=== PATIENT | female | born 1975 | race Caucasian/White ===

== ENCOUNTER 2016-04-20 20:35 | Emergency (ER) | payer OTHER ==
[~2016-04-20] VITALS: Ht 176.5 cm; Wt 68.6 kg
[~2016-04-20 20:35] MED LIST: ACET-1256 PO; ASPI81TA28 PO; CITA20TA9 PO; CMD5 PO; ENOX80IN SQ; ISOT40CA PO; LEVO112T2 PO; ONDA8TAB13 PO; OXYC-57 PO; SPIR50TA2 PO
[2016-04-20 20:42] VITALS: TEMP 36.9; Ht 176.5 cm; Wt 68.6 kg
[2016-04-20 21:18] LABS: BASO % 0.2 %; BASO ABS # 0.01 K/uL (0-0.2); COMPLETE YES; EOS % 0.7 %; HEMATOCRIT 39.8 % (37-47); IG% 0.2 %; LYMPH % 38.2 %; LYMPH ABS # 2.31 K/uL (1.2-3.4); MEAN CORPUSCULAR HEMOGLOBIN 26.6 pg (25-34); MEAN CORPUSCULAR HGB CONC 33.7 g/dl (32-36); MEAN PLATELET VOLUME 10.2 fL (7.4-10.4); MONO % 7.6 %; NEUT % 53.1 %; PLATELET COUNT 237 K/uL (130-400); RED BLOOD COUNT 5.04 M/uL (4.2-5.4); WHITE BLOOD COUNT 6.05 K/uL (4.8-10.8)
[2016-04-20 21:28] LABS: INR 1.7 (0.9-1.1); PARTIAL THROMBOPLASTIN RATIO 1.2; PROTHROMBIN TIME (PATIENT) 18.3 SECONDS (9.0-12.0)
[2016-04-20] MEDS ORDERED: WARF10TA4 PO (21:29)
[2016-04-20] MEDS ORDERED: WARF7.5T4 PO (21:29)
[2016-04-20 21:38] LABS: ALT/SGPT 29 U/L (12-78); BLOOD UREA NITROGEN 17 mg/dl (7-18); BUN/CREATININE RATIO 23.7 (10-20); CALCIUM 8.7 mg/dl (8.5-10.1); CARBON DIOXIDE 27 mmol/L (21-32); CHLORIDE 106 mmol/L (98-107); GLUCOSE 72 mg/dl (70-99); MAGNESIUM 1.9 mg/dl (1.8-2.4); POTASSIUM 3.4 mmol/L (3.5-5.1); SODIUM 142 mmol/L (136-145)
[2016-04-20 21:41] LABS: ALKALINE PHOSPHATASE 48 U/L (45-117); AST/SGOT 21 U/L (15-37)
[2016-04-20] MEDS ORDERED: ENOXAPARIN 80 MG/0.8 ML SYR SQ STA (21:41)
--- NOTE | 2016-04-20 21:44 | EMERGENCY ROOM VISIT NOTE ---
History Report prepared by Dilia: Zeny Rashid Under the Supervision of: Dr. Jeannie Min M.D. First contact with patient: 20:52 Chief Complaint: SHORTNESS OF BREATH Stated Complaint: CHEST PAIN,DX W/PE History of Present Illness The patient is a 40 year old female who presents to the Emergency Room with complaints of worsening right sided chest pain over the past few days. The patient notes that she had her left saphenous vein ablated on March 28 due to varicose veins. The surgery produces a blood clot and she had an ultrasound the following day to check the placement of the clot. During the ultrasound, a piece of the clot broke off. She was started on Lovanox that evening. The following day, she started to become short of breath and came to the emergency room. She was diagnosed with a pulmonary embolism in her right lower lobe. The patient was hospitalized and was put on Coumadin. Since then, she has had increased shortness of breath with exertion, especially while she was very busy at work yesterday. Currently, she continues to have right sided chest pain and also has noticed some left leg swelling. She has been having left leg neuropathy since the surgery. Her most recent INR was 1.5, 4 days ago. She was initially on 7.5 mg Coumadin a day but is now on 7.5 mg 4 days a week and 10 mg 3 days a week. Denies fever or other complaints. Source of History: patient Onset: a few days [employer] Position: chest (right) Timing: worsening Associated Symptoms: + SOB, No fevers Note: Other complaints: left leg swelling, left leg neuropathy pain Review of Systems See HPI for pertinent positives & negatives. A total of 10 systems reviewed and were otherwise negative. Past Medical & Surgical Medical Problems: (1) Hyperthyroidism (2) vein ablation Surgical Problems: (1) History of tonsillectomy (2) Hx of LASIK Family History Patient reports no known family medical history. Social History Smoking Status: Never Smoker Alcohol Use: none Marital Status: single Occupation Status: employed Current/Historical Medications Scheduled Citalopram Hydrobromide (Celexa), 20 MG PO DAILY Levothyroxine Sodium (Synthroid), 112 MCG PO DAILY Spironolactone (Aldactone), 50 MG PO QAM Warfarin Sod (Jantoven), 7.5 MG PO 4XWK Warfarin Sod (Jantoven), 10 MG PO 3XWK Scheduled PRN Acetaminophen (Tylenol), 500-1,000 MG PO Q8 PRN for Pain Ondansetron Odt (Zofran Odt), 8 MG PO Q8H PRN for Nausea or Vomiting Oxycodone/Acetaminophen 5MG/325MG (Percocet 5MG/325MG), 1 TABLET PO Q6H PRN for Pain Allergies Coded Allergies: Minocycline (Verified Allergy, Intermediate, Rash, 04/20/16) Penicillins (Verified Allergy, Intermediate, Hives, 04/20/16) Physical Exam Vital Signs Date Time Temp Pulse Resp B/P Pulse Ox O2 Delivery O2 Flow Rate FiO2 04/20/16 22:15 58 18 132/65 97 Room Air 04/20/16 21:05 78 04/20/16 21:00 98 Room Air 04/20/16 20:42 36.9 74 18 117/74 99 Room Air Physical Exam Vital signs reviewed. General: Well-appearing 40 year old female, in no significant distress. HEENT: No scleral icterus, PERRLA, neck supple. Atraumatic. Cardiovascular: Regular rate and rhythm, no extra sounds. Pulmonary: Clear to auscultation bilaterally, normal work of breathing. Abdomen: Soft, nontender, nondistended, positive bowel sounds. Musculoskeletal: Atraumatic, no peripheral edema. Neurologic: Patient awake alert and oriented x 3 Skin: Warm, dry, no rash Medical Decision & Procedures ER Provider Diagnostic Interpretation: X-ray results as stated below per interpretation by me. Chest x-ray 2 views: Normal mediastinal silhouette, lung hernandez clear bilaterally, no failure, no infiltrate. Laboratory Results 04/20/16 21:00 Red Blood Count 5.04, Mean Corpuscular Volume 79.0, Mean Corpuscular Hemoglobin 26.6, Mean Corpuscular Hemoglobin Concent 33.7, Mean Platelet Volume 10.2, Neutrophils (%) (Auto) 53.1, Lymphocytes (%) (Auto) 38.2, Monocytes (%) (Auto) 7.6, Eosinophils (%) (Auto) 0.7, Basophils (%) (Auto) 0.2, Neutrophils # (Auto) 3.22, Lymphocytes # (Auto) 2.31, Monocytes # (Auto) 0.46, Eosinophils # (Auto) 0.04, Basophils # (Auto) 0.01 04/20/16 21:00 Test 04/20/16 21:00 White Blood Count 6.05 K/uL (4.8-10.8) Red Blood Count 5.04 M/uL (4.2-5.4) Hemoglobin 13.4 g/dL (12.0-16.0) Hematocrit 39.8 % (37-47) Mean Corpuscular Volume 79.0 fL (80-100) Mean Corpuscular Hemoglobin 26.6 pg (25-34) Mean Corpuscular Hemoglobin Concent 33.7 g/dl (32-36) Platelet Count 237 K/uL (130-400) Mean Platelet Volume 10.2 fL (7.4-10.4) Neutrophils (%) (Auto) 53.1 % Lymphocytes (%) (Auto) 38.2 % Monocytes (%) (Auto) 7.6 % Eosinophils (%) (Auto) 0.7 % Basophils (%) (Auto) 0.2 % Neutrophils # (Auto) 3.22 K/uL (1.4-6.5) Lymphocytes # (Auto) 2.31 K/uL (1.2-3.4) Monocytes # (Auto) 0.46 K/uL (0.11-0.59) Eosinophils # (Auto) 0.04 K/uL (0-0.5) Basophils # (Auto) 0.01 K/uL (0-0.2) RDW Standard Deviation 39.1 fL (36.4-46.3) RDW Coefficient of Variation 13.9 % (11.5-14.5) Immature Granulocyte % (Auto) 0.2 % Immature Granulocyte # (Auto) 0.01 K/uL (0.00-0.02) Prothrombin Time 18.3 SECONDS (9.0-12.0) Prothromb Time International Ratio 1.7 (0.9-1.1) Activated Partial Thromboplast Time 31.3 SECONDS (21.0-31.0) Partial Thromboplastin Ratio 1.2 Anion Gap 9.0 mmol/L (3-11) Est Creatinine Clear Calc Drug Dose 112.4 ml/min Estimated GFR () 124.7 Estimated GFR (Non- 107.6 BUN/Creatinine Ratio 23.7 (10-20) Calcium Level 8.7 mg/dl (8.5-10.1) Magnesium Level 1.9 mg/dl (1.8-2.4) Total Bilirubin 0.3 mg/dl (0.2-1) Direct Bilirubin < 0.1 mg/dl (0-0.2) Aspartate Amino Transf (AST/SGOT) 21 U/L (15-37) Alanine Aminotransferase (ALT/SGPT) 29 U/L (12-78) Alkaline Phosphatase 48 U/L (45-117) Total Protein 7.2 gm/dl (6.4-8.2) Albumin 3.8 gm/dl (3.4-5.0) Laboratory results per my review. Medications Administered Medications (Trade) Dose Ordered Sig/Indira Route Start Time Stop Time Status Last Admin Dose Admin Enoxaparin Sodium (Lovenox Inj) 70 mg NOW STAT SQ 04/20/16 21:41 04/20/16 21:42 DC 04/20/16 22:19 70 MG ED Course 2100: Past medical records reviewed. The patient was evaluated in room C6. A complete history and physical examination was performed. 2140: Ordered Lovenox Inj 70 mg SQ 2142: Upon reevaluation, the patient was resting comfortably. I discussed findings with the patient. She verbalized agreement of the treatment plan. The patient was discharged home. Medical Decision Differential: Acute coronary syndrome, pulmonary embolus, aortic dissection, musculoskeletal pain, pneumonia, pleural effusion, pneumothorax This patient was evaluated and appeared to be in no significant distress. IV access was obtained and laboratory work was drawn. The patient's vital signs have remained stable. Records were reviewed from the patient's previous ultrasound, there is no evidence of DVT, just a superficial saphenous clot induced by her surgery. The patient's chest CT performed recently reveals a small subsegmental embolus. It is in the same location as the patient's pain currently. This is likely a reactive/pleuritic pain. Chest x-ray is clear. Patient is subtherapeutic with her INR at 1.7. She was given 70 mg of subcutaneous Lovenox. She will continue this twice daily and increase her Coumadin to 10 mg daily until she is reevaluated by anticoagulation clinic in 4 days. The patient will follow-up with her physician for reevaluation return to the ER for worsening of symptoms or any medical concerns. Impression Primary Impression: Pleuritic pain Additional Impressions: History of pulmonary embolus (PE), Subtherapeutic international normalized ratio (INR) Scribe Attestation The scribe's documentation has been prepared under my direction and personally reviewed by me in its entirety. I confirm that the note above accurately reflects all work, treatment, procedures, and medical decision making performed by me. Departure Information Dispostion Home / Self-Care Referrals No Doctor, Assigned (PCP) Patient Instructions A Signature Page, My [facility] Additional Instructions Diagnosis: Pleuritic chest pain, subtherapeutic INR, history of PE Lovenox 70 mg twice daily. Increase your Coumadin to 10 mg daily for the next 3 days. Follow up in 4 days as scheduled with the anticoagulation clinic. Continue Percocet as needed for severe pain. Follow-up with your physician this week if symptoms continue. Return to the ER for worsening of symptoms or any medical concerns.
[2016-04-20] MEDS ORDERED: ENOXAPARIN 100 MG/1ML SYR ONE (21:58)
[2016-04-20 22:15] VITALS: BP 132/65; PULSE 58; O2SAT 97
--- NOTE | 2016-04-20 22:27 | DIAGNOSTIC IMAGING REPORT ---
CHEST 2 VIEWS ROUTINE HISTORY: Right-sided chest pain. COMPARISON: Chest 03/30/2016. FINDINGS: The lungs are clear. Cardiac silhouette is normal in size. No pleural effusions. No pneumothorax. IMPRESSION: No acute process. Electronically signed by: Faraz Cool M.D. 04/20/2016 10:25 PM Dictated Date/Time: 04/20/2016 10:24 PM
== END 2016-04-20 22:25 | disposition home or self-care (01) ==
LOC: C.EDB 20:36 → C.EDC 22:25
DX: R07.81 Pleurodynia (principal); Z86.711 Personal history of pulmonary embolism; Z79.01 Long term (current) use of anticoagulants; E05.90 Thyrotoxicosis, unspecified without thyrotoxic crisis or storm; Z98.890 Other specified postprocedural states; Z79.899 Other long term (current) drug therapy; Z88.0 Allergy status to penicillin; Z88.8 Allergy status to other drugs, medicaments and biological substances

== ENCOUNTER → 2017-03-10 | Outpatient (CLI) | payer OTHER ==
[~2017-03-10] MED LIST changes: -ASPI81TA28 PO; -CMD5 PO; -ENOX80IN SQ; -ISOT40CA PO; +WARF10TA4 PO; +WARF7.5T4 PO
--- NOTE | 2017-03-10 15:12 | MAMMOGRAPHY REPORT ---
BILATERAL DIGITAL SCREENING MAMMOGRAM TOMOSYNTHESIS WITH CAD: 03/10/2017 CLINICAL HISTORY: Routine screening. Patient has no complaints. TECHNIQUE: Breast tomosynthesis in addition to standard 2D mammography was performed. Current study was also evaluated with a Computer Aided Detection (CAD) system. COMPARISON: Comparison is made to exams dated: 03/01/2016 mammogram, 12/08/2014 mammogram - [facility], and 05/04/2011 mammogram. BREAST COMPOSITION: The tissue of both breasts is heterogeneously dense, which may obscure small mas ses. FINDINGS: The parenchymal pattern is similar to prior mammograms, although there is decreased subcut aneous fat likely secondary to weight loss. No developing mass, architectural distortion or cluster of suspicious microcalcifications is seen in either breast. IMPRESSION: ACR BI-RADS CATEGORY 2: BENIGN There is no mammographic evidence of malignancy. A 1 year screening mammogram is recommended. The pa tient will receive written notification of the results. Approximately 10% of breast cancers are not detected with mammography. A negative mammographic report should not delay biopsy if a clinically suggestive mass is present. Cat Baltazar M.D. ay/:03/10/2017 08:29:11 Financial Services Director: Lindsay MANZANO(Mark)(Galindo)([place]), [facility] letter sent: Normal 1/2 BI-RADS Code: ACR BI-RADS Category 2: Benign
== END | disposition home or self-care (01) ==
LOC: C.MAMM 08:03
PROVIDERS: ATTEND Family Medicine
DX: Z12.31 Encounter for screening mammogram for malignant neoplasm of breast (principal)